=== PATIENT | male | born 1980 | race Caucasian/White ===

== ENCOUNTER 2017-02-01 01:05 | Emergency (ER) | payer OTHER ==
[2017-02-01 02:30] LABS: Hematocrit 39 % (42-52); Hemoglobin 13.1 g/dl (14.0-18.0); Mean Corpuscular HGB Conc 33 g/dl (31-36); Mean Corpuscular Hemoglobin 33 pg (27-31); Mean Corpuscular Volume 99 fL (80-94); Mean Platelet Volume 9 um3 (7.4-10.4); Red Blood Count 3.97 10^6/ul (4.0-5.4); Red Cell Distribution Width 13 % (10.5-15)
[2017-02-01 02:42] LABS: BUN/Creatinine Ratio 26.2 (8-20); EGFR African American 180.8 (>60); EGFR Non-African American 140.6 (>60); Potassium 3.4 mmol/L (3.5-5.0); Total Bilirubin 0.4 mg/dL (0.2-1.0)
--- NOTE | 2017-02-01 03:13 | ED ---
Lon Nance Alfonso, scribed for Nikolay Rodriguez MD on 02/01/17 at 0224 . Upper Extremity Pain - HPI Summary HPI Summary: This patient is a 36 year old M presenting to [facility] with a chief complaint of LUE antecubital swelling and erythema since two days ago. Pt reports infusion of 400ml of albumin for protein anemic on 01/30/17 with LUE hand IV site. The CC is described as worsening and burning. Pt rates the pain 4/10 in severity. Symptoms aggravated and alleviated by nothing. Pt denies drainage or fever. Tobacco abuse disorder. PMHx of diffuse large B-cell non-hodgkins lymphoma stage 2 (in remission) and chronic pain. - History of Current Complaint Chief Complaint: EDExtremityUpper Stated Complaint: ARM INJURY Time Seen by Provider: 02/01/17 01:52 Hx Obtained From: Patient Onset/Duration: Started Days Ago - 2, Worse Since Severity Initially: Moderate Severity Currently: Moderate Pain Location: Other: - LUE antecubital Character: Burning Aggravating Factor(s): Nothing Alleviating Factor(s): Nothing Associated Signs & Symptoms: Positive: Swelling, Redness, Other - Negative drainage. Negative: Fever - Allergies/Home Medications Allergies/Adverse Reactions: Allergies Allergy/AdvReac Type Severity Reaction Status Date / Time Penicillins [PCN] Allergy Unknown Unknown Verified 02/01/17 01:15 Reaction Details PMH/Surg Hx/FS Hx/Imm Hx Endocrine/Hematology History: Reports: Hx Anemia, Other Endocrine/Hematological Disorders - 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, in remission Denies: Hx Diabetes Cardiovascular History: Denies: Hx Congestive Heart Failure, Hx Hypertension Respiratory History: Reports: Hx Asthma, Hx Seasonal Allergies GI History: Reports: Hx Jaundice, Other GI Disorders - Primary Intestinal Lymphangiectasia, intestinal resection History: Reports: Other Problems/Disorders - ED Denies: Hx Dialysis, Hx Renal Disease Musculoskeletal History: Reports: Other Musculoskeletal History - chronic pain, numbness/tingling Sensory History: Reports: Hx Hearing Problem Neurological History: Reports: 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 "repaired fingertips" - 2007. Intestinal resection - May 2015 Infectious Disease History: No Infectious Disease History: Denies: Traveled Outside the [place] in Last 30 Days - Family History Known Family History: Positive: Other - Cancer in both parents - Social History Alcohol Use: None Substance Use Type: Reports: None Substance Use Comment - Amount & Last Used: pt with rx for marijuana Smoking Status (MU): Former Smoker Type: Cigarettes Amount Used/How Often: 1 ppd Have You Smoked in the Last Year: Yes Review of Systems Negative: Fever Positive: Other - Positive LUE antecubital swelling Positive: Other - Positive LUE antecubital erythema; negative drainage All Other Systems Reviewed And Are Negative: Yes Physical Exam Triage Information Reviewed: Yes Vital Signs On Initial Exam: Initial Vitals Temp Pulse Resp BP Pulse Ox 98.7 F 108 20 130/77 95 02/01/17 01:10 02/01/17 01:10 02/01/17 01:10 02/01/17 01:10 02/01/17 01:10 Vital Signs Reviewed: Yes Appearance: Positive: Well-Appearing, No Pain Distress Skin: Positive: Warm, Other - mild erythema lt antecubital area, mild warmth, no fluctuance Head/Face: Positive: Normal Head/Face Inspection Eyes: Positive: JALIL ENT: Positive: Hearing grossly normal Neck: Positive: Supple Respiratory/Lung Sounds: Positive: Breath Sounds Present Cardiovascular: Positive: RRR Abdomen Description: Positive: Nontender, Soft Neurological: Positive: Alert, Oriented to Person Place, Time Psychiatric: Positive: Affect/Mood Appropriate - Vani Coma Scale Coma Scale Total: 15 Diagnostics - Vital Signs Vital Signs Temp Pulse Resp BP Pulse Ox 02/01/17 01:45 98.7 F 108 20 130/77 95 02/01/17 01:10 98.7 F 108 20 130/77 95 - Laboratory Lab Results: Lab Results 02/01/17 02/01/17 Range/Units 02:17 02:17 WBC 7.0 (3.5-10.8) 10^3/ul RBC 3.97 L (4.0-5.4) 10^6/ul Hgb 13.1 L (14.0-18.0) g/dl Hct 39 L (42-52) % MCV 99 H (80-94) fL MCH 33 H (27-31) pg MCHC 33 (31-36) g/dl RDW 13 (10.5-15) % Plt Count 152 (150-450) 10^3/ul MPV 9 (7.4-10.4) um3 Neut % (Auto) 82.6 (38-83) % Lymph % (Auto) 4.3 L (25-47) % [place] % (Auto) 5.0 (1-9) % Eos % (Auto) 6.0 (0-6) % Baso % (Auto) 2.1 H (0-2) % Absolute Neuts (auto) 5.7 (1.5-7.7) 10^3/ul Absolute Lymphs (auto) 0.3 L (1.0-4.8) 10^3/ul Absolute Monos (auto) 0.3 (0-0.8) 10^3/ul Absolute Eos (auto) 0.4 (0-0.6) 10^3/ul Absolute Basos (auto) 0.1 (0-0.2) 10^3/ul Absolute Nucleated RBC 0 10^3/ul Nucleated RBC % 0 Sodium 143 (133-145) mmol/L Potassium 3.4 L (3.5-5.0) mmol/L Chloride 114 H (101-111) mmol/L Carbon Dioxide 25 (22-32) mmol/L Anion Gap 4 (2-11) mmol/L BUN 17 (6-24) mg/dL Creatinine 0.65 L (0.67-1.17) mg/dL Est GFR ( Amer) 180.8 (>60) Est GFR (Non-Af Amer) 140.6 (>60) BUN/Creatinine Ratio 26.2 H (8-20) Glucose 104 H (70-100) mg/dL Calcium 8.0 L (8.6-10.3) mg/dL Total Bilirubin 0.40 (0.2-1.0) mg/dL AST 14 (13-39) U/L ALT 15 (7-52) U/L Alkaline Phosphatase 27 L (34-104) U/L Total Protein 4.0 L (6.4-8.9) g/dL Albumin 3.0 L (3.2-5.2) g/dL Globulin 1.0 L (2-4) g/dL Albumin/Globulin Ratio 3.0 (1-3) Result Diagrams: 02/01/17 02:17 02/01/17 02:17 Lab Statement: Any lab studies that have been ordered have been reviewed, and results considered in the medical decision making process. Re-Evaluation - Re-Evaluation First Eval Change: Improved - results d/w pt Course/Dx - Course Assessment/Plan: 36 year old M presenting to [facility] with a chief complaint of LUE antecubital swelling and erythema since two days ago. Pt reports infusion of 400ml of albumin for protein anemic on 01/30/17 with LUE hand IV site. The CC is described as worsening and burning. Pt denies drainage or fever. Patient will be discharged with follow up from PCP. Pt is agreeable with this plan. - Diagnoses Provider Diagnoses: Dermatitis Discharge - Discharge Plan Condition: Stable Disposition: HOME Patient Education Materials: Dermatitis (ED) Referrals: Aniyah Perez MD [Primary Care Provider] - 3 Days The documentation as recorded by the Lon anne Alfonso accurately reflects the service I personally performed and the decisions made by , Nikolay Rodriguez MD.
[2017-02-01 04:08] VITALS: BP 102/50
== END 2017-02-01 03:30 | disposition home or self-care (01) ==
LOC: ED 01:05
DX: L30.9 Dermatitis, unspecified (principal); Z87.891 Personal history of nicotine dependence; G89.29 Other chronic pain
CPT/HCPCS: 36415; 80053; 85025; 99282

== ENCOUNTER 2018-06-19 21:57 | Emergency (ER) | payer OTHER ==
[2018-06-19 22:52] LABS: ABS Basophils 0 10^3/ul (0-0.2); ABS Eosinophils 0.3 10^3/ul (0-0.6); ABS Lymphocytes 0.6 10^3/ul (1.0-4.8); ABS Monocytes 0.4 10^3/ul (0-0.8); ABS Neutrophils 4.5 10^3/ul (1.5-7.7); ABS Nucleated RBC 0 10^3/ul; Eosinophil % 5.6 %; Hematocrit 41 % (42-52); Lymphocyte % 10.4 %; Mean Corpuscular HGB Conc 34 g/dl (31-36); Mean Corpuscular Hemoglobin 33 pg (27-31); Mean Corpuscular Volume 96 fL (80-94); Mean Platelet Volume 8.3 fL (7.4-10.4); Nucleated Red Blood Cells % 0; Platelet Count 180 10^3/ul (150-450); Red Blood Count 4.24 10^6/ul (4.00-5.40); Red Cell Distribution Width 13 % (10.5-15); White Blood Count 5.9 10^3/ul (3.5-10.8)
[2018-06-19 23:11] LABS: Albumin 3.6 g/dL (3.2-5.2); Albumin/Globulin Ratio 3.3 (1-3); BUN/Creatinine Ratio 27.5 (8-20); C Reactive Protein 2.93 mg/L (<8.01); Calcium 8.9 mg/dL (8.6-10.3); Globulin 1.1 g/dL (2-4); Potassium 3.6 mmol/L (3.5-5.0); Total Bilirubin 0.4 mg/dL (0.2-1.0); Total Protein 4.7 g/dL (6.4-8.9)
[2018-06-19] MEDS ORDERED: Sulfamethox/Trimethoprim DS 800/160* TAB PO ONE (23:30)
--- NOTE | 2018-06-19 23:36 | ED ---
Skin Complaint - HPI Summary HPI Summary: Patient complains of progressive "" on neck scalp, back, left lower extremity and feet x 2weeks. . Denies fever, cough, sore throat, MEJIA, neck stiffness, CP, SOB, N/V/D, abdominal pain, change in urine, change in BM. History of staph infections and immunocompromise. History of large B-cell lymphoma, intestinal resection. - History of Current Complaint Chief Complaint: EDRashSkinAbscess Time Seen by Provider: 06/19/18 22:19 Stated Complaint: ABCESS/RASH Hx Obtained From: Patient Onset/Duration: Started Weeks Ago Skin Exposure Onset/Duration: Weeks Ago Timing: Constant Onset Severity: Mild Current Severity: Mild Pain Intensity: 2 Pain Scale Used: 0-10 Numeric Skin Location: Neck, Leg, Foot Aggravating Symptom(s): Nothing Alleviating Symptom(s): Nothing Associated Signs & Symptoms: Rash - Additional Pertinent History Primary Care Physician: AIMEE - Allergy/Home Medications Allergies/Adverse Reactions: Allergies Allergy/AdvReac Type Severity Reaction Status Date / Time Penicillins Allergy Unknown Unknown Verified 06/19/18 22:05 Reaction Details PMH/Surg Hx/FS Hx/Imm Hx Endocrine/Hematology History: Reports: Hx Anemia, Other Endocrine/Hematological Disorders - 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, in remission Denies: Hx Diabetes Cardiovascular History: Denies: Hx Congestive Heart Failure, Hx Hypertension Respiratory History: Reports: Hx Asthma, Hx Seasonal Allergies GI History: Reports: Hx Jaundice, Other GI Disorders - Primary Intestinal Lymphangiectasia, intestinal resection History: Reports: Other Problems/Disorders - ED Denies: Hx Dialysis, Hx Renal Disease Musculoskeletal History: Reports: Other Musculoskeletal History - chronic pain, numbness/tingling Sensory History: Reports: Hx Hearing Problem Neurological History: Reports: 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 "repaired fingertips" - 2007. Intestinal resection - May 2015 Infectious Disease History: No Infectious Disease History: Denies: Traveled Outside the [place] in Last 30 Days - Family History Known Family History: Positive: Other - Cancer in both parents - Social History Alcohol Use: None Substance Use Type: Reports: Marijuana Substance Use Comment - Amount & Last Used: medical Smoking Status (MU): Light Every Day Tobacco Smoker Type: Cigarettes Amount Used/How Often: 6-10 cigarettes/day Have You Smoked in the Last Year: Yes Review of Systems Constitutional: Negative Eyes: Negative ENT: Negative Cardiovascular: Negative Respiratory: Negative Gastrointestinal: Negative Genitourinary: Negative Musculoskeletal: Negative Positive: Rash Neurological: Negative Psychological: Normal All Other Systems Reviewed And Are Negative: Yes Physical Exam - Summary Physical Exam Summary: Multiple small pimples/abscesses along the back of head bilaterally, upper back bilaterally right shoulder. No vesicular lesions. No apical abscesses. No purulent discharge. Tender to palpation. Bilateral distribution. Triage Information Reviewed: Yes Vital Signs On Initial Exam: Initial Vitals Temp Pulse Resp BP Pulse Ox 99.3 F 58 16 123/65 94 06/19/18 21:58 06/19/18 21:58 06/19/18 21:58 06/19/18 21:58 06/19/18 21:58 Vital Signs Reviewed: Yes Appearance: Positive: Well-Appearing Skin: Positive: Warm Head/Face: Positive: Normal Head/Face Inspection Eyes: Positive: Normal ENT: Positive: Normal ENT inspection Neck: Positive: Supple Respiratory/Lung Sounds: Positive: Clear to Auscultation Cardiovascular: Positive: Normal Abdomen Description: Positive: Nontender Musculoskeletal: Positive: Normal Neurological: Positive: Normal Psychiatric: Positive: Normal AVPU Assessment: Alert - [place] Coma Scale Best Eye Response: 4 - Spontaneous Best Motor Response: 6 - Obeys Commands Best Verbal Response: 5 - Oriented Coma Scale Total: 15 Diagnostics - Vital Signs Vital Signs Temp Pulse Resp BP Pulse Ox 06/19/18 23:00 60 18 94 06/19/18 22:49 57 19 104/69 92 06/19/18 22:19 65 21 116/74 94 06/19/18 22:18 64 22 94 06/19/18 21:58 99.3 F 58 16 123/65 94 - Laboratory Lab Results: Lab Results 06/19/18 06/19/18 Range/Units 22:41 22:41 WBC 5.9 (3.5-10.8) 10^3/ul RBC 4.24 (4.00-5.40) 10^6/ul Hgb 14.0 (14.0-18.0) g/dl Hct 41 L (42-52) % MCV 96 H (80-94) fL MCH 33 H (27-31) pg MCHC 34 (31-36) g/dl RDW 13 (10.5-15) % Plt Count 180 (150-450) 10^3/ul MPV 8.3 (7.4-10.4) fL Neut % (Auto) 75.9 % Lymph % (Auto) 10.4 % [place] % (Auto) 7.6 % Eos % (Auto) 5.6 % Baso % (Auto) 0.5 % Absolute Neuts (auto) 4.5 (1.5-7.7) 10^3/ul Absolute Lymphs (auto) 0.6 L (1.0-4.8) 10^3/ul Absolute Monos (auto) 0.4 (0-0.8) 10^3/ul Absolute Eos (auto) 0.3 (0-0.6) 10^3/ul Absolute Basos (auto) 0 (0-0.2) 10^3/ul Absolute Nucleated RBC 0 10^3/ul Nucleated RBC % 0 Sodium 142 (135-145) mmol/L Potassium 3.6 (3.5-5.0) mmol/L Chloride 113 H (101-111) mmol/L Carbon Dioxide 26 (22-32) mmol/L Anion Gap 3 (2-11) mmol/L BUN 22 (6-24) mg/dL Creatinine 0.80 (0.67-1.17) mg/dL Est GFR ( Amer) 133.1 (>60) Est GFR (Non-Af Amer) 110.0 (>60) BUN/Creatinine Ratio 27.5 H (8-20) Glucose 93 (70-100) mg/dL Calcium 8.9 (8.6-10.3) mg/dL Total Bilirubin 0.40 (0.2-1.0) mg/dL AST 22 (13-39) U/L ALT 18 (7-52) U/L Alkaline Phosphatase 30 L (34-104) U/L C-Reactive Protein 2.93 (<8.01) mg/L Total Protein 4.7 L (6.4-8.9) g/dL Albumin 3.6 (3.2-5.2) g/dL Globulin 1.1 L (2-4) g/dL Albumin/Globulin Ratio 3.3 H (1-3) Result Diagrams: 06/19/18 22:41 06/19/18 22:41 Lab Statement: Any lab studies that have been ordered have been reviewed, and results considered in the medical decision making process. Course/Dx - Course Course Of Treatment: Patient complains of progressive "" on neck scalp, back, left lower extremity and feet x 2weeks. . Denies fever, cough, sore throat, MEJIA , neck stiffness, CP, SOB, N/V/D, abdominal pain, change in urine, change in BM. History of staph infections and immunocompromise. History of large B-cell lymphoma, intestinal resection. Patient gets every other day abdomen injections and immunoglobulin shots every week. Physical exam:Multiple small pimples/abscesses along the back of head bilaterally, upper back bilaterally right shoulder. No vesicular lesions. No apical abscesses. No purulent discharge. Tender to palpation. Bilateral distribution. Vital signs within normal limits and stable. Labs unremarkable. No indication for I&D. Rx for Bactrim. - Diagnoses Provider Diagnoses: Cellulitis Discharge - Sign-Out/Discharge Documenting (check all that apply): Patient Departure - Discharge Plan Condition: Stable Disposition: HOME Prescriptions: Sulfamethox/Trimethoprim DS* [Bactrim DS 800/160 TAB*] 1 tab PO BID 10 Days #20 tab Patient Education Materials: Acute Rash (ED) Referrals: Aniyah Perez MD [Primary Care Provider] - Additional Instructions: Take antibiotics as directed. Drink plenty of fluids to maintain hydration. Follow primary care. Return to the ED for any new or worsening symptoms - Billing Disposition and Condition Condition: STABLE Disposition: Home
[2018-06-20 00:18] VITALS: BP 99/55
== END 2018-06-20 00:15 | disposition home or self-care (01) ==
LOC: ED 21:57
DX: L03.90 Cellulitis, unspecified (principal); C83.30 Diffuse large B-cell lymphoma, unspecified site; F17.210 Nicotine dependence, cigarettes, uncomplicated; Z88.0 Allergy status to penicillin
CPT/HCPCS: 36415; 80053; 85025; 86140; 99282; A9270-GY

== ENCOUNTER 2018-07-27 01:47 | Emergency (ER) | payer OTHER ==
[2018-07-27 03:29] VITALS: BP 106/54
--- NOTE | 2018-07-27 05:29 | ED ---
HPI Chest Pain - HPI Summary HPI Summary: Pt is 38 y/o M who presents to ED c/o chest pain since 20:30 earlier this evening. He notes that his chest feels tight and that he has an irregular heartbeat. Describes pain as constant and rates pain as 3/10 in severity. Notes that palpation exacerbated the pain. Denies SOB, vomiting, or nausea. PMHx of protein anemic and has albumin infusions every other day. - History of Current Complaint Chief Complaint: EDChestWallPain Time Seen by Provider: 07/27/18 01:56 Hx Obtained From: Patient Onset/Duration: Started Hours Ago, Still Present Time of Onset: 20:30 Timing: Constant Current Severity: Mild Pain Intensity: 3 Pain Scale Used: 0-10 Numeric Character: Tightness Aggravating Factor(s): Other: - Palpation Alleviating Factor(s): Nothing - Additional Pertinent History Primary Care Physician: AIMEE - Allergy/Home Medications Allergies/Adverse Reactions: Allergies Allergy/AdvReac Type Severity Reaction Status Date / Time Penicillins Allergy Unknown Unknown Verified 07/27/18 01:53 Reaction Details PMH/Surg Hx/FS Hx/Imm Hx Endocrine/Hematology History: Reports: Hx Anemia, Other Endocrine/Hematological Disorders - 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, in remission Denies: Hx Diabetes Cardiovascular History: Denies: Hx Congestive Heart Failure, Hx Hypertension Respiratory History: Reports: Hx Asthma, Hx Seasonal Allergies GI History: Reports: Hx Jaundice, Other GI Disorders - Primary Intestinal Lymphangiectasia, intestinal resection History: Reports: Other Problems/Disorders - ED Denies: Hx Dialysis, Hx Renal Disease Musculoskeletal History: Reports: Other Musculoskeletal History - chronic pain, numbness/tingling Sensory History: Reports: Hx Hearing Problem Neurological History: Reports: 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 "repaired fingertips" - 2007. Intestinal resection - May 2015 Infectious Disease History: No Infectious Disease History: Denies: Traveled Outside the [place] in Last 30 Days - Family History Known Family History: Positive: Other - Cancer in both parents - Social History Alcohol Use: None Substance Use Type: Reports: Marijuana Substance Use Comment - Amount & Last Used: medical Smoking Status (MU): Heavy Every Day Tobacco Smoker Type: Cigarettes Amount Used/How Often: 10-12/day Have You Smoked in the Last Year: Yes Review of Systems Positive: Chest Pain Negative: Shortness Of Breath Negative: Vomiting, Nausea All Other Systems Reviewed And Are Negative: Yes Physical Exam - Summary Physical Exam Summary: Appearance: Well-appearing, Well-nourished, lying in bed comfortably Skin: Warm, dry, no obvious rash Eyes: sclera anicteric, no conjunctival pallor ENT: mucous membranes moist, pharynx appears normal Neck: Supple, nontender Respiratory: Clear to auscultation, no signs of respiratory distress Cardiovascular: Mild tenderness of left costochondral junction, Normal S1, S2. No murmurs. Normal distal pulses in tibial and radial bilaterally. Abdomen: Soft, nontender, normal active bowel sounds present Musculoskeletal: Normal, Strength/ROM Intact Neurological: A&Ox3, awake and alert, mentation is normal, speech is fluent and appropriate Psychiatric: affect is normal, does not appear anxious or depressed Triage Information Reviewed: Yes Vital Signs On Initial Exam: Initial Vitals Temp Pulse Resp BP Pulse Ox 98.1 F 83 16 144/75 95 07/27/18 01:50 07/27/18 01:50 07/27/18 01:50 07/27/18 01:50 07/27/18 01:50 Vital Signs Reviewed: Yes Diagnostics - Vital Signs Vital Signs Temp Pulse Resp BP Pulse Ox 07/27/18 03:50 97.1 F 80 19 106/54 97 07/27/18 03:23 73 20 106/54 92 07/27/18 03:02 72 17 104/60 91 07/27/18 03:00 66 17 91 07/27/18 02:32 82 20 118/66 91 07/27/18 01:50 98.1 F 83 16 144/75 95 - Laboratory Lab Results: Lab Results 07/27/18 Range/Units 02:14 Troponin I 0.00 (<0.04) ng/mL Lab Statement: Any lab studies that have been ordered have been reviewed, and results considered in the medical decision making process. - EKG 2:36 Cardiac Rate: NL EKG Rhythm: Sinus Rhythm - 83 bpms Summary of EKG Findings: Premature atrial contractions Chest Pain Course/Dx - Course Course Of Treatment: Pt is 38 y/o M who presents to ED c/o chest pain since 20: 30 earlier this evening. He notes that his chest feels tight and that he has an irregular heartbeat. Denies SOB, vomiting, or nausea. PMHx of protein anemic and has albumin infusions every other day. Physical exam revealed mild tenderness of left costochondral junction. EKG taken at 2:36 shows sinus rhythm at 83 bpm and premature atrial contraction. Pt was diagnosed with noncardiac chest wall pain and discharged home. Pt is agreeable with this plan. - Diagnoses Provider Diagnoses: Non-cardiac chest pain Discharge - Sign-Out/Discharge Documenting (check all that apply): Patient Departure - Discharge - Discharge Plan Condition: Good Disposition: HOME Patient Education Materials: Chest Wall Pain (ED) Referrals: Aniyah Perez MD [Primary Care Provider] - If Needed - Billing Disposition and Condition Condition: GOOD Disposition: Home - Attestation Statements Document Initiated by Scribe: Yes Documenting Scribe: Mihir Norwood Provider For Whom Carmina is Documenting (Include Credential): Dr. Bro Massey MD Scribe Attestation: IMihir scribed for Dr. Bro Massey MD on 07/27/18 at 1941. Scribe Documentation Reviewed: Yes Provider Attestation: The documentation as recorded by the scribeMihir accurately reflects the service I personally performed and the decisions made by me, Dr. Bro Massey MD Status of Scribe Document: Viewed
== END 2018-07-27 03:50 | disposition home or self-care (01) ==
LOC: ED 01:47
DX: R07.89 Other chest pain (principal); R00.2 Palpitations; Z88.0 Allergy status to penicillin; F17.210 Nicotine dependence, cigarettes, uncomplicated
CPT/HCPCS: 36415; 84484; 93005; 99282

== ENCOUNTER 2019-01-14 13:21 | Emergency (ER) | payer OTHER ==
[2019-01-14] MEDS ORDERED: Sulfamethox/Trimethoprim DS 800/160* TAB PO ONE (16:56)
[2019-01-14 16:57] LABS: ABS Eosinophils 0.1 10^3/ul (0-0.6); ABS Lymphocytes 0.6 10^3/ul (1.0-4.8); ABS Monocytes 0.4 10^3/ul (0-0.8); ABS Neutrophils 3.8 10^3/ul (1.5-7.7); Eosinophil % 2.4 %; Hematocrit 37 % (42-52); Hemoglobin 12.4 g/dL (14.0-18.0); Lymphocyte % 11.5 %; Mean Corpuscular HGB Conc 34 g/dL (31-36); Mean Corpuscular Hemoglobin 32 pg (27-31); Mean Corpuscular Volume 94 fL (80-94); Mean Platelet Volume 8.3 fL (7.4-10.4); Nucleated Red Blood Cells % 0.1; Platelet Count 186 10^3/uL (150-450); Red Cell Distribution Width 14 % (10-15); White Blood Count 4.9 10^3/uL (3.5-10.8)
--- NOTE | 2019-01-14 16:58 | ED ---
Skin Complaint - HPI Summary HPI Summary: This patient is a 38 year old M presenting to [facility] with a chief complaint of possible returning cellulites since approx. 1 week. Pt previously had cellulitis , and was taking Keflex, for two rounds (10 days each). Pt finished antibiotics last week, and the redness is returning. Pt has had 7 rounds of cellulitis in 2019. Patient reports diarrhea, reduced appetite. - History of Current Complaint Chief Complaint: EDRashSkinAbscess Time Seen by Provider: 01/14/19 16:45 Stated Complaint: POSS CELLULITES PER PATIENT Hx Obtained From: Patient Onset/Duration: Started Weeks Ago Timing: Constant Onset Severity: Moderate Current Severity: Moderate Pain Intensity: 4 Pain Scale Used: 0-10 Numeric Skin Location: Other: - ramirez left leg Character: Redness Associated Signs & Symptoms: Rash - Additional Pertinent History Primary Care Physician: AIMEE - Allergy/Home Medications Allergies/Adverse Reactions: Allergies Allergy/AdvReac Type Severity Reaction Status Date / Time Penicillins Allergy Unknown Unknown Verified 01/14/19 13:26 Reaction Details PMH/Surg Hx/FS Hx/Imm Hx Endocrine/Hematology History: Reports: Hx Anemia, Other Endocrine/Hematological Disorders - 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, in remission Denies: Hx Diabetes Cardiovascular History: Denies: Hx Congestive Heart Failure, Hx Hypertension Respiratory History: Reports: Hx Asthma, Hx Seasonal Allergies GI History: Reports: Hx Jaundice, Other GI Disorders - Primary Intestinal Lymphangiectasia, intestinal resection History: Reports: Other Problems/Disorders - ED Denies: Hx Dialysis, Hx Renal Disease Musculoskeletal History: Reports: Other Musculoskeletal History - chronic pain, numbness/tingling Sensory History: Reports: Hx Hearing Problem Neurological History: Reports: 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 "repaired fingertips" - 2007. Intestinal resection - May 2015 Infectious Disease History: No Infectious Disease History: Denies: Traveled Outside the [place] in Last 30 Days - Family History Known Family History: Positive: Other - Cancer in both parents - Social History Occupation: Employed Full-time Alcohol Use: None Substance Use Type: Reports: Marijuana Substance Use Comment - Amount & Last Used: medical Smoking Status (MU): Heavy Every Day Tobacco Smoker Type: Cigarettes Amount Used/How Often: 10-12 cigarettes/day Have You Smoked in the Last Year: Yes Review of Systems Positive: Other - reduced appetite Positive: Diarrhea Positive: Other - erythema All Other Systems Reviewed And Are Negative: Yes Physical Exam - Summary Physical Exam Summary: Appearance: Well-appearing, Well-nourished, lying in bed comfortably Skin: Warm, dry, no obvious rash, Eyes: sclera anicteric, no conjunctival pallor ENT: mucous membranes moist, pharynx appears normal Neck: Supple, nontender Respiratory: Clear to auscultation, no signs of respiratory distress Cardiovascular: Normal S1, S2. No murmurs. Normal distal pulses in tibial and radial bilaterally. Abdomen: Soft, nontender, normal active bowel sounds present Musculoskeletal: Normal, Strength/ROM Intact, Left posterior leg erythema with induration, area warm, consistent with cellulitis Neurological: A&Ox3, awake and alert, mentation is normal, speech is fluent and appropriate Psychiatric: affect is normal, does not appear anxious or depressed Triage Information Reviewed: Yes Vital Signs On Initial Exam: Initial Vitals Temp Pulse Resp BP Pulse Ox 97.9 F 78 16 135/73 98 01/14/19 13:23 01/14/19 13:23 01/14/19 13:23 01/14/19 13:23 01/14/19 13:23 Vital Signs Reviewed: Yes Diagnostics - Vital Signs Vital Signs Temp Pulse Resp BP Pulse Ox 01/14/19 15:50 98.3 F 66 14 110/66 96 01/14/19 13:23 97.9 F 78 16 135/73 98 - Laboratory Result Diagrams: 01/14/19 16:46 01/14/19 16:46 Lab Statement: Any lab studies that have been ordered have been reviewed, and results considered in the medical decision making process. Course/Dx - Course Course Of Treatment: This patient is a 38 year old M presenting to [facility] with a chief complaint of returning cellulitis since approx. 1 week. Pt previously had cellulitis, and was taking Keflex, for two rounds (10 days). Pt finished antibiotics last week, and the redness is returning. Pt has had 7 rounds of cellulitis in 2019. Patient reports diarrhea, reduced appetite. Blood work obtained. RBC is 3.90, Hgb is 12.4, Hct is 37, MCH is 32, Potassium is 3.3, Chloride is 118, Creatinine is 0.66, BUN/Creatinine Ratio is 22.7, Calcium is 7.9, Alkaline Phosphatase is 31, Total Protien is 4.9, Globulin is 1.2. Patient will be discharged with prescription for Sulfamethox/Trimethoprim and follow up from PCP. The patient is agreeable with this plan. - Diagnoses Provider Diagnoses: Cellulitis Discharge - Sign-Out/Discharge Documenting (check all that apply): Patient Departure - Discharge Patient Received Moderate/Deep Sedation with Procedure: No - Discharge Plan Condition: Good Disposition: HOME Prescriptions: Sulfamethox/Trimethoprim DS* [Bactrim DS 800/160 TAB*] 1 tab PO BID #20 tab Patient Education Materials: Cellulitis (ED) Referrals: Aniyah Perez MD [Primary Care Provider] - - Attestation Statements Document Initiated by Carmina: Yes Documenting Scribe: Evelyne Lane Provider For Whom Carmina is Documenting (Include Credential): Dr. Bro Massey MD Scribe Attestation: Evelyne Nance scribed for Dr. Bro Massey MD on 01/14/19 at 1845. Status of Scribe Document: Ready
[2019-01-14 17:11] LABS: Albumin 3.7 g/dL (3.2-5.2); Calcium 7.9 mg/dL (8.6-10.3); Potassium 3.3 mmol/L (3.5-5.0); Total Bilirubin 0.3 mg/dL (0.2-1.0)
[2019-01-14 17:17] LABS: Albumin/Globulin Ratio 3.1 (1-3); BUN/Creatinine Ratio 22.7 (8-20); C Reactive Protein 3.89 mg/L (<8.01); EGFR African American 165.3 (>60); EGFR Non-African American 136.6 (>60); Globulin 1.2 g/dL (2-4); Total Protein 4.9 g/dL (6.4-8.9)
[2019-01-14 19:22] VITALS: BP 107/77
== END 2019-01-14 19:21 | disposition home or self-care (01) ==
LOC: ED 13:21
DX: L03.116 Cellulitis of left lower limb (principal); R19.7 Diarrhea, unspecified; Z85.72 Personal history of non-Hodgkin lymphomas; G89.29 Other chronic pain; Z88.0 Allergy status to penicillin; F17.210 Nicotine dependence, cigarettes, uncomplicated
CPT/HCPCS: 36415; 80053; 83605; 85025; 86140; 87493; 99282; A9270-GY